=== PATIENT | male | born 1980 | race Caucasian/White ===

== ENCOUNTER → 2016-12-03 | Day surgery (SDC) | payer OTHER ==
[2016-12-01 10:01] LABS: BASO # 0.1 10*3/uL (0.0-0.1); BASO % 0.7 % (0.0-1.0); EOS # 0.1 10*3/uL (0.0-0.4); EOS % 0.8 % (1.0-4.0); HEMATOCRIT 50.2 % (42.0-52.0); HEMOGLOBIN 16.4 g/dl (14.0-18.0); LYMPH # 2.9 10*3/uL (1.3-4.4); LYMPH % 24.4 % (27.0-41.0); MEAN CELL VOLUME 86.9 fl (80.0-94.0); MEAN CORPUSCULAR HGB 28.4 pg (27.0-31.0); MEAN CORPUSCULAR HGB CONC 32.7 g/dl (33.0-37.0); MEAN PLATELET VOLUME 10.2 fl (9.6-12.3); MONO # 0.9 10*3/uL (0.1-1.0); MONO % 7.4 % (3.0-9.0); NEUT # 7.8 10*3/uL (2.3-7.9); NEUT % 65.6 % (47.0-73.0); PLATELET COUNT AUTOMATED 193 10*3/uL (130-400); RED BLOOD COUNT 5.78 10*6/uL (4.50-5.90); RED CELL DISTRI WIDTH 13.8 % (0-14.5); WHITE BLOOD COUNT 11.9 10*3/uL (4.8-10.8)
[2016-12-01 10:25] LABS: BUN 10 mg/dl (7-24); CHLORIDE 105 mmol/L (98-107); POTASSIUM 4.3 mmol/L (3.5-5.1); SODIUM 138 mmol/L (136-145)
[~2016-12-03] VITALS: Ht 193 cm; Wt 115.7 kg
[~2016-12-03] MED LIST: NAPROSYN500 MG PO; NORCO 5-325 TA1 EACH PO
--- NOTE | ~2016-12-03 | PROC NOTE ---
[place], [place] PROCEDURE NOTE NAME: SHRUTHI PEREZ [facility] #: [id number] UNIT #: [id number] ROOM: DOCTOR: HOWARD VIDALES MD BIRTHDATE: [birth year] DOS: 12/03/2016 PREOPERATIVE DIAGNOSIS: Left facial cyst. POSTOPERATIVE DIAGNOSIS: Left facial cyst. PROCEDURE: Excision of left facial cyst. SURGEON: Howard Vidales M.D. SPOTLIGHT OPERATOR: MS3. ANESTHESIA: MAC. INDICATIONS: This is a 36-year-old gentleman with a history of left facial cyst, who is here for the above-mentioned procedure. The procedure and its complications were explained to patient in detail preoperatively. Complications that were discussed included, but were not limited to bleeding, infection, prolonged pain and damage to underlying vital structures, he agreed to proceed. DESCRIPTION OF PROCEDURE: After identifying the patient, patient was brought to the operating suite and laid in the supine position. After time-out procedure was called, IV sedation was administered and the parts were then painted and draped in the usual sterile fashion. An elliptical incision was marked in the long access of the cyst. Local anesthesia (1% plain lidocaine) was injected for local anesthetic. The incision was made and the cysts were excised and entirety and sent for histopathological diagnosis. Hemostasis was achieved with the help of electrocautery; thereafter, the area was irrigated and the skin edges were approximated with the help of 4-0 nylon in an interrupted fashion. Dressing was placed. Patient tolerated the procedure well and was taken to the recovery room in stable fashion. There were no complications. Dr. Howard Vidales, the attending surgeon, was present throughout the operating case. Howard Vidales MD CM:PROCNOTE:PROCEDURE NOTE [id number] HOWARD VIDALES MD
[2016-12-03 08:42] VITALS: BP 129/93
[2016-12-03 09:33] VITALS: BP 124/80
[2016-12-03 09:48] VITALS: BP 129/82
[2016-12-03 10:03] VITALS: BP 119/81
== END | disposition home or self-care (01) ==
LOC: SDC 12-01 08:45
PROVIDERS: Surgery
DX: L72.0 Epidermal cyst (principal); F17.210 Nicotine dependence, cigarettes, uncomplicated; Z98.890 Other specified postprocedural states

== ENCOUNTER → 2018-07-21 | Day surgery (SDC) | payer OTHER ==
[~2018-07-21] VITALS: Ht 193 cm; Wt 115.7 kg
--- NOTE | ~2018-07-21 | PROC NOTE ---
[place], [place] PROCEDURE NOTE NAME: SHRUTHI PEREZ [facility] #: [id number] UNIT #: [id number] ROOM: DOCTOR: HOWARD VIDALES MD BIRTHDATE: [birth year] DOS: 07/21/2018 PREOPERATIVE DIAGNOSIS: Left cheek and right temporoparietal scalp cyst. POSTOPERATIVE DIAGNOSIS: Left cheek and right temporoparietal scalp cyst. PROCEDURE: Excision of left cheek and right temporoparietal scalp cyst. SURGEON: Howard Vidales MD. SEISMOGRAPH CHIEF: CELSO. ANESTHESIA: MAC with local. INDICATIONS: This is a 37-year-old gentleman with a cyst on his left cheek and the right temporoparietal scalp that he desires excision. The procedure and its complications explained to the patient in detail preoperatively. Complications that were discussed included but were not limited to bleeding, infection, hematoma/seroma/abscess formation, prolonged pain. He agreed to proceed. DESCRIPTION OF PROCEDURE: After identifying the patient, the patient was brought to the operating suite and placed on the operating table. After time-out procedure was called, IV sedation was administered. The left cheek was prepped and draped in the usual sterile fashion and an incision was marked. Incision was made after local anesthesia was infiltrated in the line of the incision. Incision was deepened in layers and the cyst was excised in its entirety and sent for histopathological diagnosis. Hemostasis was achieved and then the area was cleaned with the help of saline. Thereafter, the subcutaneous tissue was approximated with the help of 3-0 Vicryl in an interrupted fashion and the skin edges were approximated with the help of 4-0 Vicryl in a subcuticular running fashion. Attention was then turned towards the right scalp cyst. The parts were painted and draped in the usual sterile fashion. Incision was marked and local anesthesia was infiltrated in the line of the incision. The incision was made and the cyst was incised in its entirety and sent for histopathological diagnosis. Hemostasis was achieved and saline was used for irrigation. Thereafter, the subcutaneous tissue was approximated with the help of 3-0 Vicryl and the edges of the skin were approximated with the help of 4-0 Vicryl in a subcuticular fashion. Dressing was placed. The patient tolerated the procedure well and was brought back to the recovery room in stable fashion. There were no complications. Dr. Howard Vidales, the attending surgeon, was present throughout the operating case. [place], [place] PROCEDURE NOTE NAME: SHRUTHI PEREZ UNIT #: [id number] ROOM: DOCTOR: HOWARD VIDALES MD BIRTHDATE: [birth year] Howard Vidales MD CM:PROCNOTE:PROCEDURE NOTE [id number] HOWARD VIDALES MD
[2018-07-21 07:20] VITALS: BP 131/85
[2018-07-21 08:45] VITALS: BP 106/68
[2018-07-21 08:57] VITALS: BP 107/76
[2018-07-21 09:12] VITALS: BP 107/69
== END | disposition home or self-care (01) ==
LOC: SDC 07-20 08:45
DX: L72.0 Epidermal cyst (principal); F17.210 Nicotine dependence, cigarettes, uncomplicated; E66.9 Obesity, unspecified; M54.5 Low back pain; G89.29 Other chronic pain; Z88.0 Allergy status to penicillin; Z68.31 Body mass index [BMI] 31.0-31.9, adult; Z98.890 Other specified postprocedural states; Z79.899 Other long term (current) drug therapy; Z82.49 Family history of ischemic heart disease and other diseases of the circulatory system